=== PATIENT | male | born 1980 | race Two or more races ===

== ENCOUNTER 2024-01-31 11:01 | Outpatient (CLI) | payer MEDICAID ==
[~2024-01-31 11:01] MED LIST: NO HOME MEDS
== END 2024-01-31 23:59 | disposition home or self-care (01) ==
LOC: RAD 11:01
PROVIDERS: ATTEND Nurse Practitioner Family
DX: R10.31 Right lower quadrant pain (principal); R31.9 Hematuria, unspecified
CPT/HCPCS: 74022